=== PATIENT | male | born 1975 | race Caucasian/White ===

== ENCOUNTER 2022-08-19 13:14 | Emergency (ER) | payer BC, SELFPAY ==
[2022-08-19 13:15] VITALS: BP 103/73; PULSE 102; RESP 16; TEMP 35.9; O2SAT 99; BMI 41.8
[2022-08-19 14:20] LABS: Bedside Glucose 169 mg/dL (74-106)
--- NOTE | 2022-08-19 14:31 | ED.VIS.GI ---
HPI HPI - GI History of Present Illness Chief Complaint: Nausea/Vomiting Narrative Narrative: 47-year-old male presenting with acute onset nausea and vomiting. He states he felt like his blood sugar was low and he started to vomit. He checked his blood sugar it was in the 160s. He states he vomited 2 more times after this. He felt a little lightheaded and sweaty. Patient now complaining of abdominal pain in the left lower quadrant. He states he had a normal bowel movement this morning. No urinary symptoms. He has not had a fever. Is not having chest pain or shortness of breath. History of kidney stones. [facility] Medical History Heart disease HTN (hypertension) Type 2 diabetes mellitus with other diabetic neurological complication Home Medications furosemide 20 mg tablet 1 - 2 tab PO DAILY 07/22/16 [History Last Taken Unknown] metformin 500 mg 24 hr tablet,extended release 2,000 mg PO DAILY 07/22/16 [History Last Taken Unknown] aspirin 81 mg tablet,delayed release (Adult Aspirin Regimen) PO 10/26/17 [History Last Taken Unknown] blood sugar diagnostic (Contour Test Strips) #20 ea 10/26/17 [History Last Taken Unknown] duloxetine 60 mg capsule,delayed release (Cymbalta) 60 mg PO QDAY 10/26/17 [History Last Taken Unknown] lisinopril 20 mg tablet 20 mg PO QDAY 10/26/17 [History Last Taken Unknown] carvedilol 6.25 mg tablet (Coreg) 6.25 mg PO QDAY 11/17/17 [History Last Taken Unknown] dulaglutide 0.75 mg/0.5 mL subcutaneous pen injector (Trulicity) 0.75 mg subcut QWEEK 11/17/17 [History Last Taken Unknown] losartan 100 mg tablet (Cozaar) 100 mg PO QDAY 11/17/17 [History Last Taken Unknown] Novolog U-100 Insulin aspart 100 unit/mL subcutaneous solution (insulin aspart U-100) See Rx Instructions subcut QDAY e11.49 #180 mL 12/29/17 [Rx Last Taken Unknown] ondansetron 4 mg disintegrating tablet 4 mg PO Q8H PRN nausea and vomiting #14 tabs 08/19/22 [Rx Last Taken Unknown] Allergy/AdvReac Type Severity Reaction Status Date / Time Penicillins Allergy Unknown Verified 08/19/22 13:15 terbinafine [From Lamisil] Allergy Rash Verified 08/19/22 13:15 Family History Grandfather Diabetes Cancer Grandmother Cancer Surgical History H/O adenoidectomy H/O breast biopsy H/O colonoscopy H/O excision of epidermal inclusion cyst H/O vasectomy Hx of tonsillectomy removal of lymph node r inner arm Social History (Updated 11/19/17 @ 07:59 by Goldie Esparza [employer]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 He reports normal bowel movements. He does not have any urinary symptoms. No history of diverticulitis or kidney stones. Patient did not want anything strong for pain and he was given Toradol 15 mg IV as well as Zofran.CBC was obtained to assess white blood cell count and differential. White blood cell count is slightly elevated at 13.5. Hemoglobin slightly concentrated at 17.0. There is slight left shift. BMP was ordered to assess patient's renal function and electrolytes. Patient's creatinine is elevated at 1.40 today. Patient was given a liter of IV fluids given his hemoconcentration and elevated creatinine. Glucose is elevated today at 146 without anion gap. Urinalysis negative for infection or occult blood. CT of the abdomen pelvis with IV contrast was ordered given left lower quadrant pain and concern for possible diverticulitis. This did not show acute diverticulitis. Does not identify constipation pattern. There is no acute obstruction or other abnormality. Patient feeling improved on reevaluation at 4:50 PM. I counseled him that his creatinine was elevated today. I recommended that he stay away from NSAIDs for the time being. He should continue his other medications and follow-up with his PCP to have his kidney function rechecked. He was given prescription for Zofran for home. Impression: 1. Left lower quadrant abdominal pain 2. Leukocytosis 3. Elevated 4. Nausea/vomiting Lab Data Attestation: I reviewed the patient's lab results. Labs: Laboratory Results - last 24 hr 08/19/22 08/19/22 08/19/22 13:19 14:25 14:25 WBC 13.5 H RBC 5.60 Hgb 17.0 H Hct 48.0 MCV 85.7 MCH 30.4 MCHC 35.4 RDW Std Deviation 38.1 RDW Coeff of Viij 12.2 Plt Count 271 MPV 10.7 Immature Gran % (Auto) 0.300 Neut % (Auto) 83.6 H Lymph % (Auto) 8.8 L Morton % (Auto) 5.4 Eos % (Auto) 1.3 Baso % (Auto) 0.6 Absolute Neuts (auto) 11.2 H Absolute Lymphs (auto) 1.19 Nucleated RBC % 0 Sodium 137 Potassium 3.8 Chloride 101 Carbon Dioxide 31.0 Anion Gap 5 BUN 17 Creatinine 1.40 H Estim Creat Clear Calc 70.97 Est GFR (MDRD) Af Amer 71 Est GFR (MDRD) Non-Af 58 L BUN/Creatinine Ratio 12.1 Glucose 146 H Calcium 9.0 Urine Color Urine Clarity Urine pH Ur Specific Barco Urine Protein Urine Glucose (UA) Urine Ketones Urine Occult Blood Urine Nitrite Urine Bilirubin Urine Urobilinogen Ur Leukocyte Esterase Urine RBC Urine WBC Ur Squamous Epith Cells Urine Bacteria Hyaline Casts Urine Mucus POC Glucose 169 H 08/19/22 14:48 WBC RBC Hgb Hct MCV MCH MCHC RDW Std Deviation RDW Coeff of Viji Plt Count MPV Immature Gran % (Auto) Neut % (Auto) Lymph % (Auto) Morton % (Auto) Eos % (Auto) Baso % (Auto) Absolute Neuts (auto) Absolute Lymphs (auto) Nucleated RBC % Sodium Potassium Chloride Carbon Dioxide Anion Gap BUN Creatinine Estim Creat Clear Calc Est GFR (MDRD) Af Amer Est GFR (MDRD) Non-Af BUN/Creatinine Ratio Glucose Calcium Urine Color Yellow Urine Clarity Sl. Cloudy Urine pH 6.0 Ur Specific Barco 1.025 Urine Protein 100 H Urine Glucose (UA) 100 H Urine Ketones 5 H Urine Occult Blood Negative Urine Nitrite Negative Urine Bilirubin Negative Urine Urobilinogen 1 H Ur Leukocyte Esterase 100 H Urine RBC 0 SEEN Urine WBC 5-10 SEEN Ur Squamous Epith Cells 0-5 SEEN Urine Bacteria 1+ Hyaline Casts 0-5 SEEN Urine Mucus 0 SEEN POC Glucose Radiography Diagnostic Testing: Clinical Impression(s) from Imaging Studies Abdomen/Pelvis CT 08/19/22 15:29 IMPRESSION: Minor ileus with diffuse fecal retention in colon. No evidence for small bowel obstruction or other acute abnormality. Electronically Signed: Alireza Reis MD at 16:09 EST , Discharge Plan Triage Chief Complaint: Nausea/Vomiting ED Provider: Mak Julio Dx/Rx/DC Orders Instructions: ED Vomiting (Adult), ED Abdominal Pain Unkn Cause Male... Prescriptions: New ondansetron 4 mg tablet,disintegrating 4 mg PO Q8H PRN (Reason: nausea and vomiting) Qty: 14 0RF No Action (DME) blood sugar diagnostic [Contour Test Strips] strip See Dose Instructions .ROUTE .MEDSUPPLY Qty: 20 Rx Instructions: use to check BG 4-5 x qd duloxetine [Cymbalta] 60 mg capsule,delayed release(DR/EC) 60 mg PO QDAY aspirin [Adult Aspirin Regimen] 81 mg tablet,delayed release (DR/EC) PO lisinopril 20 mg tablet 20 mg PO QDAY dulaglutide [Trulicity] 0.75 mg/0.5 mL pen injector 0.75 mg SC QWEEK carvedilol [Coreg] 6.25 mg tablet 6.25 mg PO QDAY losartan [Cozaar] 100 mg tablet 100 mg PO QDAY insulin aspart U-100 [Novolog U-100 Insulin aspart] 100 unit/mL solution See Rx Instructions SC QDAY Qty: 180 3RF Dose Instruction: uses up to 150U qd via pump SC QDAY Rx Instructions: uses up to 200U qd via pump SC QDAY furosemide 20 MG tablet 1 - 2 tab PO DAILY metformin 500 MG tablet,ER garrison.retention 24 hr 2,000 mg PO DAILY Primary Care Provider: RONA MANCINI Referrals: Colin Lynn DO [Non-Staff] - Disposition Disposition: Home, Self Care
[2022-08-19] MEDS: Ketorolac 15 MG/ML Vial IV (14:36)
[2022-08-19] MEDS: Ondansetron 4 MG/2 ML Vial IV (14:36)
[2022-08-19 14:45] LABS: Absolute Lymphocyte Count 1.19 X10^3/uL (0.83-4.51); Absolute Neutrophil Count 11.2 X10^3/uL (2.0-7.7); Basophil# 0.08 X10^3/uL; Basophil% 0.6 % (0-1); Eosinophil# 0.18 X10^3/uL; Eosinophils% 1.3 % (0-5); Lymphocyte # 1.19 X10^3/ul (0.83-4.51); Lymphocyte % 8.8 % (19-41); Mean Corp Hgb Conc 35.4 g/dL (32-36); Mean Corpuscular Hgb 30.4 pg (27.0-32.0); Mean Corpuscular Volume 85.7 fL (80-94); Mean Platelet Vol. 10.7 fl (6.2-12.0); Monocyte# 0.73 X10^3/uL; Monocyte% 5.4 % (0-10); NRBC Flagged by Analyzer 0 % (0-5); Neutrophil # 11.24 X10^3/uL (2.7-7.7); Neutrophil % 83.6 % (47-70); Platelet Count 271 K/mm3 (150-450); RBC Distribution Width CV 12.2 % (11.6-14.6); RBC Distribution Width SD 38.1 fl (35.1-43.9); White Blood Count 13.5 K/mm3 (4.4-11.0)
[2022-08-19 14:54] LABS: Mucous, Urine 0 SEEN /hpf (<or=2+); Red Blood Cells-Urine 0 SEEN /hpf (0-5)
[2022-08-19 14:59] LABS: Color, Urine Yellow (Yellow); Glucose, Dipstick 100 mg/dl (Normal); Ketone-Dipstick 5 mg/dl (Negative); Leukocyte Esterase-Dipstick 100 /ul (Negative); Nitrite-Dipstick Negative (Negative); Occult Blood-Urine Negative /ul (Negative); Protein-Dipstick 100 mg/dl (Negative); Specific Gravity, Urine 1.025 (1.002-1.030); Urine Bilirubin Dipstick Negative (Negative); Urine Clarity Sl. Cloudy (Clear); Urine Urobilinogen 1 mg/dl (Normal)
[2022-08-19 14:59] LABS: Anion Gap 5 (5-15); BUN 17 mg/dL (7-18); BUN/Creat Ratio 12.1 RATIO (10-20); Chloride 101 mmol/L (98-107); EST Glomerular Filtration Rate 58 mL/min (>60); Est Glom Filt Rate - Afr Amer 71 mL/min (>60); Estimated Creatinine Clearance 70.97 ml/min; Glucose 146 mg/dL (74-106); Potassium 3.8 mmol/L (3.5-5.1); Sodium Level 137 mmol/L (136-145)
[2022-08-19] MEDS: 0.9% Normal Saline 1,000 ML 999 ML IV (15:06)
[2022-08-19 15:14] LABS: White Blood Cells 5-10 SEEN /hpf (0-5)
[2022-08-19 15:15] LABS: Bacteria 1+ /hpf (None Seen); Hyaline Cast 0-5 SEEN /lpf (0-5); Squamous Epithelial Cells - UA 0-5 SEEN /hpf (0-5)
--- NOTE | 2022-08-19 15:29 | CT_ITS ---
INDICATION: llq abdominal pain EXAMINATION: CT ABDOMEN AND PELVIS WITH CONTRAST - CT Abdomen And Pelvis W/ Contrast Injection TECHNIQUE: Helically acquired images were obtained of the abdomen and pelvis following IV contrast. A radiation dose optimization technique was used for this scan. IV Contrast dosage and agent: Oral contrast: None. COMPARISON: None. FINDINGS: LOWER CHEST: Lung bases are clear. No cardiomegaly or pericardial effusion. LIVER: Nonspecific fatty infiltrated liver. No focal mass. GALLBLADDER AND BILIARY TREE: No calcified gallstones. No gallbladder distension or wall edema. No intra- or extrahepatic biliary ductal dilation. PANCREAS: No focal cystic or solid mass. SPLEEN: Normal size without focal cystic or solid mass. ADRENAL GLANDS: No nodules. KIDNEYS AND URETERS: Normal renal size and position. No hydronephrosis. PERITONEUM: No ascites or free air. No other fluid collection. BOWEL: No evidence of acute appendicitis. Mild nonspecific ileus with diffuse fecal retention in the colon. No focal inflammatory change. LYMPH NODES: No enlarged mesenteric or retroperitoneal lymph nodes. VESSELS: Aorta is non-dilated. URINARY BLADDER: Bladder is poorly distended and difficult to evaluate... REPRODUCTIVE ORGANS: No pelvic masses. ABDOMINAL WALL: Small fat-containing left inguinal hernia.. BONES: Lumbar spine demonstrates mild spondylosis No lytic or blastic abnormality. Small interosseous hemangioma within the L1 vertebral body CT/Abdomen/Pelvis W IV Cont ONLY IMPRESSION: Minor ileus with diffuse fecal retention in colon. No evidence for small bowel obstruction or other acute abnormality. Electronically Signed: Alireza Reis MD at 16:09 EST ,
[2022-08-19 16:57] VITALS: O2SAT 98
== END 2022-08-19 17:05 | disposition home or self-care (01) ==
PROVIDERS: Emergency Provider Student in an Organized Health Care Education/Training Program; Visit Provider Student in an Organized Health Care Education/Training Program
DX: R11.2 Nausea with vomiting, unspecified (principal); E11.9 Type 2 diabetes mellitus without complications; Z79.4 Long term (current) use of insulin; R10.32 Left lower quadrant pain; I10 Essential (primary) hypertension; D72.829 Elevated white blood cell count, unspecified; Z87.891 Personal history of nicotine dependence; I51.9 Heart disease, unspecified; Z79.899 Other long term (current) drug therapy; Z79.82 Long term (current) use of aspirin; Z79.84 Long term (current) use of oral hypoglycemic drugs
CPT/HCPCS: 74177; 80048; 81001; 82962; 85025; 96374; 96375; 99283; J7030; Q9967; A4216; J2405